=== PATIENT | female | born 1980 | race Caucasian/White ===

== ENCOUNTER 2020-03-04 07:48 | Outpatient (CLI) | payer BC, SELFPAY ==
--- NOTE | 2020-03-04 07:54 | US_ITS ---
WS: [id number] Complete ABDOMINAL ULTRASOUND HISTORY: EPIGASTRIC PAIN COMPARISON: None available. Liver: 18.2 cm in length. Slightly enlarged liver with increased echogenicity and hepatic steatosis. No mass. No bile duct dilatation. Gallbladder: Prior cholecystectomy. Pancreas: Normal size and echogenicity. CBD: 0.6 cm. Right kidney: 9.9 cm x 5.0 cm x 4.7 cm. No mass, cortical thickening or hydronephrosis. Left kidney: 12.6 cm x 4.8 cm x 3.6 cm. No mass, cortical thickening or hydronephrosis. Spleen: Spleen is top normal size measuring 12 cm in length. No mass. Abdominal aorta and IVC are within normal limits. No ascites. US/US abdomen complete* [id number] IMPRESSION: 1. Prior cholecystectomy. 2. Mild hepatomegaly with hepatic steatosis. 3. Top normal size spleen.
== END 2020-03-04 07:49 | disposition home or self-care (01) ==
PROVIDERS: PCP Family Medicine; Visit Provider Family Medicine
DX: R10.13 Epigastric pain (principal); R16.0 Hepatomegaly, not elsewhere classified; K76.0 Fatty (change of) liver, not elsewhere classified
CPT/HCPCS: 76700

== ENCOUNTER → 2020-04-01 09:26 | Outpatient (BNVA) | payer BC, SELFPAY | PROVIDERS: PCP Family Medicine; Visit Provider Obstetrics & Gynecology | DX: N93.9 Abnormal uterine and vaginal bleeding, unspecified (principal); D25.9 Leiomyoma of uterus, unspecified | CPT/HCPCS: 81025 ==

== ENCOUNTER → 2020-10-19 08:57 | Outpatient (BNVA) | payer BC, SELFPAY | PROVIDERS: PCP Family Medicine; Visit Provider Obstetrics & Gynecology | DX: D25.9 Leiomyoma of uterus, unspecified (principal) | CPT/HCPCS: 76830 ==

== ENCOUNTER → 2021-02-09 14:15 | Outpatient (BNVA) | payer BC, SELFPAY | PROVIDERS: PCP Family Medicine; Visit Provider Podiatrist Foot & Ankle Surgery | DX: M25.572 Pain in left ankle and joints of left foot (principal) | CPT/HCPCS: 73630 ==

== ENCOUNTER → 2022-03-14 10:08 | Outpatient (BNVA) | payer OTHER, SELFPAY | PROVIDERS: PCP Family Medicine; Visit Provider Obstetrics & Gynecology | DX: N93.9 Abnormal uterine and vaginal bleeding, unspecified (principal) | CPT/HCPCS: 88305 ==

== ENCOUNTER 2022-05-24 09:22 | Observation (INO) | payer OTHER, SELFPAY ==
[2022-05-23 10:20] VITALS: BMI 34.7
[2022-05-24] VITALS (32 sets, daily range): BP systolic 94–155; BP diastolic 60–100; PULSE 87–111; RESP 10–24; TEMP 36.1–36.9; O2SAT 89–99
--- NOTE | 2022-05-24 | US_ITS ---
WS: [id number] TRANSVAGINAL PELVIC ULTRASOUND HISTORY: IN OR EVAL FOR BLEED COMPARISON: None available. Limited evaluation of the pelvis during surgery. Transvaginal imaging reveals a complex fluid collect ion the central pelvis consistent with blood surrounding the vaginal cuff. Complex collection in the deep pelvis measuring 5.8 x 2.4 x 5.0 cm which is probably blood. US/US transvaginal [id number] IMPRESSION: Limited intraoperative imaging of the pelvis. Complex fluid collections in the pelvis at the surgical site are most consistent with blood products.
[2022-05-24] MEDS: acetaminophen 1,000 MG/100 ML PIGGYBACK 400 MG IV (07:00)
[2022-05-24 07:01] LABS: Basophils # 0.1 10^3/uL (0.0-0.1); Basophils % 1.2 %; Eosinophils # 0.3 10^3/uL (0.0-0.8); Eosinophils % 4.7 %; Hematocrit 41.4 % (37.0-47.0); Hemoglobin 14.6 g/dL (11.5-15.3); Lymphocytes # 1.6 10^3/uL (0.8-4.8); Lymphocytes % 26.8 %; Mean Corpuscular HGB Conc 35.3 g/dL (30.0-36.0); Mean Corpuscular Hemoglobin 30.2 pg (28.0-34.0); Mean Corpuscular Volume 85.5 fl (81-99); Mean Platelet Volume 9.5 fL (7.4-10.4); Monocytes # 0.6 10^3/uL (0.2-0.9); Monocytes % 9.2 %; Neutrophils # 3.37 10^3/uL (1.8-7.7); Neutrophils % 56.3 %; Nucleated Red Blood Cells % 0 %; Platelet Count 226 10^3/cmm (130-400); Red Blood Count 4.84 10^6/uL (4.1-5.3); Red Cell Distribution Width 13.2 % (12.1-15.1)
[2022-05-24] MEDS: gabapentin 300 mg Capsule PO (07:01)
[2022-05-24] MEDS: CELEcoxib 200 mg Capsule 400 MG PO (07:01)
[2022-05-24] MEDS: phenazopyridine 100 mg Tablet 200 MG PO ×3 (07:02→21:10)
[2022-05-24] MEDS: sodium chloride 0.9% 1,000 ML 30 ML IV (07:02)
--- NOTE | 2022-05-24 07:03 | W.PM.OPSUD ---
Surgery/Procedure H&P Update DATE OF PROCEDURE: May 24, 2022 DATE H&P PERFORMED: 05/19/22 H&P UPDATE INFORMATION: I have reviewed H&P completed within last 30 days, I have examined patient prior to procedure and No changes to prior documentation PREOP DIAGNOSIS: AUB PLANNED PROCEDURE: Operation Date: 05/24/22 07:00 Proposed Procedures p Laparoscopic assisted vaginal hysterectomy, bilateral salpingectomy 89674,N93.9(Not Applicable) - Maday Motley MD s Laparoscopic Salpingectomy(Bilateral) - Maday Motley MD Related Problem List Diagnoses (1) Fibroid uterus: (2) Abnormal uterine bleeding (AUB):
[2022-05-24] MEDS: ceFAZolin 2,000 MG in sodium chloride 0.9% (plus) 50 ML 100 MG IV ×2 (07:04→16:41)
[2022-05-24 07:11] LABS: OR HCG Qualitative Urine Negative (Negative)
[2022-05-24 07:18] LABS: Anion Gap 16.3 (5-19); Blood Urea Nitrogen 12 mg/dL (6-20); Carbon Dioxide 24 mmol/L (22-29); Chloride 102 mmol/L (98-107); Glomerular Filtration Rate 69.7 mL/min (90-130); Glucose 98 mg/dL (65-115); Osmolality Calculated 286 mOsm/kg (285-295); Potassium 4.3 mmol/L (3.5-5.1); Sodium 138 mmol/L (136-145)
--- NOTE | 2022-05-24 07:42 | SUR.OPER ---
attempted to contact family for surgical update
[2022-05-24] MEDS: vasopressin 20 unit/mL INJ 4 UNIT XX (08:06)
--- NOTE | 2022-05-24 08:06 | SUR.OPER ---
family updated of surgical status
--- NOTE | 2022-05-24 08:18 | ANES.PREANE2 ---
Pre-Anesthetic Assessment Height/Weight: Height 1.68 m Weight 97.522 kg Temp Pulse Resp BP Pulse Ox O2 Del Method 97.6 F 87 18 119/72 97 05/24/22 06:16 05/24/22 06:16 05/24/22 06:16 05/24/22 06:16 05/24/22 06:16 05/24/22 06:17 Preop Diagnosis: AUB Operation Date: 05/24/22 07:00 Proposed Procedures p Laparoscopic assisted vaginal hysterectomy, bilateral salpingectomy 48569,N93.9(Not Applicable) - Maday Motley MD s Laparoscopic Salpingectomy(Bilateral) - Maday Motley MD Familial anesthetic complications: PONV Was Beta Howie taken within 24 hours: N/A Was Clonidine taken within 24 hours: N/A Last intake: Intake Last Liquid Date 05/23/22 Last Liquid Time 22:00 Last Solid Date 05/23/22 Last Solid Time 20:00 Social No alcohol and No tobacco Exam alert, oriented x 3, clear to auscultation bilaterally and regular rate & rhythm Airway Submandibular: within normal limits Cervical ROM: within normal limits Mallampati: Class II Dentition: full Metabolic Morbid Obesity Neuropsych Anxiety and Depression Anesthetic Plan ASA status: 2 Anesthesia: General Medications/Allergies Home Medications Medication Instructions Recorded Confirmed Last Taken Type diphenoxylate-atropine 2.5 1 tab PO TID PRN loose stools #30 04/21/22 05/24/22 05/21/22 Rx mg-0.025 mg tablet (Lomotil) tabs sertraline 100 mg tablet 100 mg PO DAILY #30 tabs 05/05/22 05/24/22 05/24/22 Rx clonazepam 2 mg tablet 0.5 mg PO TID 05/19/22 05/24/22 05/24/22 History lamotrigine 25 mg tablet (Lamictal) 25 mg PO BID 05/19/22 05/24/22 05/24/22 History trazodone 100 mg tablet 100 mg PO DAILY 05/19/22 05/24/22 05/22/22 History Allergies Allergy/AdvReac Type Severity Reaction Status Date / Time aripiprazole [From Abilify] Allergy Intermediate changes in Verified 05/23/22 10:12 mood metoclopramide [From Reglan] AdvReac muscle Verified 05/23/22 10:12 spasms Current Medications Generic Name Dose Route Start Last Admin Trade Name Macrina PRN Reason Stop Dose Admin Sodium Chloride 1,000 mls @ 30 mls/hr 05/24/22 06:15 05/24/22 07:02 Sodium Chloride 0.9% IV 05/25/22 06:14 30 mls/hr .Q24H CHELO Administration PFSH Anesthesia Medical History Depression Diagnosed in 2015 and well-controlled with medication managed by PMD. Hypercholesteremia No pertinent past medical history Denies diabetes, asthma, hypertension, seizures, DVT/PE PMD: Dr. Rodriguez Surgical History History of shoulder surgery (~1999) Right side open surgery Hx of cholecystectomy (~2003) 2003---laparoscopic procedure Family History Mother Hypertension Hyperlipidemia Thyroid condition Grandfather Diabetes paternal Heart disease maternal Grandmother Breast cancer Paternal grandmother, age at diagnosis unknown Family/Other Breast cancer cousin, age at diagnosis unknown Denies family history of Colon cancer Ovarian cancer Uterine cancer Stroke Social History Alcohol intake: never Additional social history: - Data Anesthesia : 05/24/22 06:32 05/24/22 06:32 Short CBC 05/24/22 Range/Units 06:32 WBC 6.0 (4.0-10.0) 10^3/uL Hgb 14.6 (11.5-15.3) g/dL Hct 41.4 (37.0-47.0) % MCV 85.5 (81-99) fl Plt Count 226 (130-400) 10^3/cmm Neut % (Auto) 56.3 % Neut # (Auto) 3.37 (1.8-7.7) 10^3/uL BMP 05/24/22 06:32 Sodium 138 Potassium 4.3 Chloride 102 Carbon Dioxide 24 BUN 12 Creatinine 0.9 Glucose 98 Calcium 10.0 Blood Bank 05/24/22 06:32 Blood Type O Positive Rho(D) Type Positive Antibody Screen Negative Cardiac Studies: No Data to Display
--- NOTE | 2022-05-24 08:58 | SUR.OPER ---
family updated of surgical status
--- NOTE | 2022-05-24 09:13 | P.OP_ITS ---
Operative Report Date of procedure: May 24, 2022 Pre-op diagnosis: Preop Diagnosis AUB Post-op diagnosis: same Post-op findings: 10 week sized uterus. Normal appearing tubes and ovaries Procedure done: LAVH, bilateral salpingectomy Specimens removed/disposition: uterus and bilateral fallopian tubes to pathology Surgeon: Maday Motley Anesthesia: General Estimated blood loss (mL): 200 IV fluids (mL): 1,100 Urine output (mL): 250 Complications: none Condition: stable Disposition: PACU Procedure: The patient was taken to the operating room where general anesthesia was administered and found to be adequate. She was prepped and draped in the normal sterile fashion in the dorsal lithotomy position in [facility]. A Michele catheter was placed. A weighted speculum was placed into the vagina and the anterior lip of the cervix was grasped with a single tooth tenaculum. The Zumi uterine manipulator was placed. The weighted speculum was removed. The gloves were changed and attention was turned to the abdomen. A 5 mm supraumbilical incision was made. Using a 5 mm port with the camera, the port was placed into the abdomen. The abdomen was insufflated. Two low, lateral 5 mm ports were placed on the left and right under direct visualization from the camera. The right tube was grasped and elevated. Using the laparoscopic cautery, the mesosalpinx was divided between the ovary and tube. The tube was removed. This was performed the same way on the left. The uteroovarian ligaments as well as the round ligaments were ligated. Attention was then turned to the vaginal portion of the procedure. The weighted speculum was placed into the vagina. The zumi manipulator was re moved. The single tooth tenaculum was removed and replaced with the cally's tenaculum. 10 mL of dilute Pitressin was injected at the vesicovaginal junction. A circumferential incision was made at the vesicovaginal junction and the vaginal mucosa reflected cephalad. The posterior peritoneum was entered sharply with the Metzenbaum scissors and the long weighted speculum replaced. Using the Hattie clamps the uterosacral ligaments were clamped cut and suture- ligated. The anterior peritoneum was entered sharply with the metzenbaum scissors. Then sequentially the uterine arteries and cardinal ligaments were clamped cut and suture-ligated. A single-tooth tenaculum was used to deliver the uterus. The remaining segement of the utero-ovarian ligaments were clamped cut and suture-ligated bilaterally and the specimen was removed. There was good hemostasis with only mild bleeding from the cuff. The peritoneum was closed with a pursestring using 2-0 Vicryl. The vaginal cuff was closed with 0 Vicryl in a running locked pattern incorporating the uterosacral ligaments into the lateral aspects of the vaginal cuff. The Michele catheter was removed and the cystoscope advanced into the bladder. The patient was given pyridium and bilateral spill was noted. There were no injuries or deficits noted in the bladder. The cystoscope was removed and the Michele was replaced. Vaginal packing was placed for good hemostasis. The gloves and gowns were changed and attention was turned to the abdomen. The ports were closed with 2-0 monocryl with skin glue. The patient tolerated the procedure well. Sponge lap and needle counts were correct x3. She was taken to the recovery room in stable condition.
[2022-05-24] MEDS: fentaNYL 50 mcg/mL INJ 2mL IVP ×2 (10:10→14:00)
--- NOTE | 2022-05-24 10:57 | PC.NURSE ---
patient taken back to OR after observing blood in the vaginal area that had soaked through packing and pads. Dr Motley alerted and pt taken to OR 6.
[2022-05-24 11:00] LABS: Basophils # 0.1 10^3/uL (0.0-0.1); Basophils % 0.6 %; Eosinophils # 0.2 10^3/uL (0.0-0.8); Hematocrit 41.8 % (37.0-47.0); Hemoglobin 14.6 g/dL (11.5-15.3); Lymphocytes # 2.2 10^3/uL (0.8-4.8); Mean Corpuscular HGB Conc 34.9 g/dL (30.0-36.0); Mean Corpuscular Hemoglobin 30.4 pg (28.0-34.0); Mean Corpuscular Volume 87.1 fl (81-99); Mean Platelet Volume 9.4 fL (7.4-10.4); Monocytes # 0.4 10^3/uL (0.2-0.9); Monocytes % 1.9 %; Neutrophils # 16.26 10^3/uL (1.8-7.7); Neutrophils % 83.1 %; Nucleated Red Blood Cells % 0 %; Platelet Count 319 10^3/cmm (130-400); Red Cell Distribution Width 13.2 % (12.1-15.1); White Blood Count 19.6 10^3/uL (4.0-10.0)
--- NOTE | 2022-05-24 11:10 | PC.NURSE ---
1045 Was called to pacu to check patient who had a large pool of bright red blood on gurney, packing mcc in. Notified Dr Barreto to come to pacu stat and was decided to take patient to OR stat to do a vag exam to determine source of bleeding.
--- NOTE | 2022-05-24 12:15 | PM.OP ---
Operative Report Date of procedure: May 24, 2022 Pre-op diagnosis: Preop Diagnosis postoperative vaginal bleeding Preop Diagnosis AUB Post-op diagnosis: same Post-op findings: bilateral small arteriole bleeding. Clamped and tied. Excellent hemostasis post repair. Procedure done: opening of vaginal cuff and tying of bleeding vessels. Specimens removed/disposition: none Surgeon: Maday Motley Anesthesia: MAC Estimated blood loss (mL): 400 IV fluids (mL): 700 Urine output (mL): 450 Complications: none with this surgery Condition: stable Disposition: PACU Brief History: The patient went to PACU post surgery and was doing well. A final pad check prior to being taken to the floor showed a large amount of vaginal bleeding. The packing was removed and there appeared to be active bleeding. She was returned to the OR. Procedure: The patient was taken to the operating room she was prepped and draped in the normal sterile fashion in the dorsal lithotomy position in Gregory stirrups. A weighted speculum was placed into the vagina and the cuff visualized. Suction was used to remove all of the clots and blood from the vagina. There appeared to be some fresh bleeding from the right cuff area and then the bleeding would stop. Ultrasound was utilized and the patient was found to have a 5 x 5 cm fluid collection in her cul-de-sac. The cuff was opened. There were 2 small arterioles bleeding. 1 on each side. They were clamped and sutured. There was excellent hemostasis. The cuff was reapproximated with 0 Vicryl in a running locked fashion. There was excellent hemostasis post repair. Sponge lap and needle counts were correct x3. She was taken to the recovery room in stable condition.
--- NOTE | 2022-05-24 12:39 | P.ANESUD_ITS ---
Pre-Anesthetic Update Pre-Anesthetic Assessment: Date of Surgery/Procedure: 05/24/22 Preop Charity gnosis: AUB Proposed Procedure: Operation Date: 05/24/22 07:00 Proposed Procedures p Laparoscopic assisted vaginal hysterectomy, bilateral salpingectomy 36804,N93.9(Not Applicable) - Maday Motley MD s Laparoscopic Salpingectomy(Bilateral) - Maday Motley MD Operation Date: 05/24/22 13:40 Proposed Procedures p Exam Under Anesthesia(Not Applicable) - Maday Motley MD Any changes to Pre-Anesthetic Assessment?: Yes Changes from Pre-Anesthetic Assessment: Patient recovering in PACU, large blood loss, taken emergently to OR for reexplore. Last Intake: Intake Last Liquid Date 05/23/22 Last Liquid Time 22:00 Last Solid Date 05/23/22 Last Solid Time 20:00 Labs Last 48hrs: Short CBC 05/24/22 05/24/22 Range/Units 06:32 10:45 WBC 6.0 19.6 H (4.0-10.0) 10^3/ uL Hgb 14.6 14.6 (11.5-15.3) g/dL Hct 41.4 41.8 (37.0-47.0) % MCV 85.5 87.1 (81-99) fl Plt Count 226 319 D (130-400) 10^3/c mm Neut % (Auto) 56.3 83.1 % Neut # (Auto) 3.37 16.26 H (1.8-7.7) 10^3/u L BMP 05/24/22 06:32 Sodium 138 Potassium 4.3 Chloride 102 Carbon Dioxide 24 BUN 12 Creatinine 0.9 Glucose 98 Calcium 10.0 Blood Bank 05/24/22 06:32 Blood Type O Positive Rho(D) Type Positive Antibody Screen Negative Vitals: Temperature 97.0 F L 05/24/22 12:18 Temperature Source Temporal Artery S can 05/24/22 12:18 Pulse Rate 102 H 05/24/22 12:35 Respiratory Rate 15 05/24/22 12:35 Respiratory Effort 05/24/22 10:10 Respiratory Depth Normal 05/24/22 10:10 Blood Pressure 125/81 05/24/22 12:35 Blood Pressure Teri n 95 05/24/22 12:35 Pulse Oximetry 97 05/24/22 12:35 Oxygen Delivery Me thod 05/24/22 12:35 Oxygen Flow Rate 6 05/24/22 12:35 Cardiac Studies: No Data to Display
[2022-05-24 12:55] LABS: Basophils # 0.1 10^3/uL (0.0-0.1); Basophils % 0.4 %; Eosinophils # 0.1 10^3/uL (0.0-0.8); Eosinophils % 0.3 %; Hematocrit 42.2 % (37.0-47.0); Hemoglobin 14.1 g/dL (11.5-15.3); Lymphocytes # 1.7 10^3/uL (0.8-4.8); Mean Corpuscular HGB Conc 33.4 g/dL (30.0-36.0); Mean Corpuscular Hemoglobin 30.1 pg (28.0-34.0); Mean Platelet Volume 9.2 fL (7.4-10.4); Monocytes # 0.7 10^3/uL (0.2-0.9); Neutrophils # 21.05 10^3/uL (1.8-7.7); Neutrophils % 87.1 %; Nucleated Red Blood Cells % 0 %; Platelet Count 313 10^3/cmm (130-400); Red Blood Count 4.69 10^6/uL (4.1-5.3); Red Cell Distribution Width 13.4 % (12.1-15.1); White Blood Count 24.2 10^3/uL (4.0-10.0)
[2022-05-24] MEDS: ketorolac 30 mg/mL INJ IVP ×2 (15:00→21:10)
[2022-05-24] MEDS: dextrose 5%-lactated ringers 1,000 ML 125 ML IV ×2 (15:39→23:17)
[2022-05-24] MEDS: ondansetron 2 mg/ML SDV 2 mL 4 MG IVP ×2 (16:48→21:12)
--- NOTE | 2022-05-24 17:08 | ANE.PACU2 ---
Inpatient post-anesthesia follow up: Airway intact: Yes Vital signs: Temperature 97.0 F Pulse Rate 106 Respiratory Rate 15 Blood Pressure 125/77 Pulse Oximetry 92 Oxygen Delivery Me thod Room Air Oxygen Flow Rate 6 Fraction of Inspir ed Oxygen Hydration adequate: Yes Nausea and vomiting: No Pain level: 5 Mental status: Baseline
[2022-05-24] MEDS: lamoTRIgine 25 mg Tablet PO (19:25)
[2022-05-24] MEDS: HYDROcodone-acetaminophen 5-325 mg Tablet PO (19:25)
[2022-05-24] MEDS: docusate sodium 100 mg Capsule PO (19:25)
[2022-05-25] MEDS: ceFAZolin 2,000 MG in sodium chloride 0.9% (plus) 50 ML 100 MG IV (01:12)
[2022-05-25 01:30] VITALS: BP 119/77; PULSE 105; O2SAT 91
[2022-05-25] MEDS: ketorolac 30 mg/mL INJ IVP ×2 (03:00→09:39)
[2022-05-25 05:30] VITALS: BP 118/70; PULSE 93; TEMP 36.8; O2SAT 95
[2022-05-25 05:58] LABS: Hematocrit 28.7 % (37.0-47.0); Hemoglobin 9.9 g/dL (11.5-15.3); Mean Corpuscular HGB Conc 34.5 g/dL (30.0-36.0); Mean Corpuscular Hemoglobin 30.2 pg (28.0-34.0); Mean Corpuscular Volume 87.5 fl (81-99); Mean Platelet Volume 9.5 fL (7.4-10.4); Platelet Count 203 10^3/cmm (130-400); Red Blood Count 3.28 10^6/uL (4.1-5.3); Red Cell Distribution Width 13.2 % (12.1-15.1); White Blood Count 7.2 10^3/uL (4.0-10.0)
[2022-05-25] MEDS: HYDROcodone-acetaminophen 5-325 mg Tablet PO (07:08)
--- NOTE | 2022-05-25 09:14 | PM.DCS ---
Discharge Providers Date of Admission: 05/24/22 09:22 Date of Discharge: May 25, 2022 Attending Provider at Admission: Maday Motley MD Attending Provider at Discharge: Maday Motley MD Primary Care Provider: Jamaal Rodriguez DO Diagnoses at Discharge Discharge Diagnosis (1) Fibroid uterus: Status: Acute (2) Abnormal uterine bleeding (AUB): Status: Acute Reason for Visit Reason for Visit: ABNORMAL UTERINE AND VAGINAL BLEEDING, UNSPECIFIED Hospital Course Hospital Course The patient was admitted for surgery. She started having vaginal bleeding about an hour postoperatively. She was returned to surgery, her cuff opened and the bleeder clamped and tied. She had an uneventful postop course after that. She did have a significant drop in her hemoglobin from 14.6 to 9.9. Her initial hemoglobin may be falsely elevated due to NPO status. She also received fluids, which may also have a dilutional effect. She is feeling well and ready for discharge. Physical Exam Narrative: The patient has no concerns today. She is feeling well and ready for discharge. Const: COMMON NORMALS: no acute distress, patient oriented x3, no limitations, healthy appearing, alert and well nourished GENERAL APPEARANCE: cooperative, comfortable, well kempt and well developed ORIENTATION/CONSCIOUSNESS: Yes awake, Yes oriented to person, Yes oriented to place and Yes oriented to time Resp: COMMON NORMALS: normal respiratory effort EFFORT & INSPECTION: Yes able to speak in complete sentences GI: COMMON NORMALS: Soft to palpation and non-tender PALPATION: Yes Soft to palpation Extremity: COMMON NORMALS: no calf tenderness Neuro: COMMON NORMALS: patient oriented x3 SENSORIUM/ORIENTATION: Yes alert, Yes oriented to person, Yes oriented to place and Yes oriented to time Psych: APPEARANCE: Yes well kempt Urinary Catheter Management: Michele Latex: Cath Placed During This Visit: yes, but has since been removed by the nurse Reason for Continuing Indwelling Catheter: Decision to DC Catheter Urinary Catheter Date of Insertion: 05/24/22 Urinary Catheter Time of Insertion: 07:39 Date Urinary Catheter Removed: 05/25/22 Time Urinary Catheter Discontinued: 05:00 Discharge Data Studies Completed and Pending Completed Studies During Hospitalization Category Date Time Status US transvaginal [id number] Routine Ultrasound 05/24/22 Completed Pending at discharge Category Date Time Status ES surgery / GI images Routine Exams 05/24/22 06:44 Taken Urine Culture Routine Lab 05/24/22 06:30 Received Pathology: Surgical [PTH] Routine Pth 05/24/22 09:07 Received Radiology Impressions Transvaginal US 05/24/22 00:00 IMPRESSION: Limited intraoperative imaging of the pelvis. Complex fluid collections in the pelvis at the surgical site are most consistent with blood products. Laboratory Results WBC 7.2 10^3/uL (4.0-10.0) 05/25/22 05:47 Corrected WBC Cancelled 05/24/22 12:45 RBC 3.28 10^6/uL (4.1-5.3) L 05/25/22 05:47 Hgb 9.9 g/dL (11.5-15.3) L 05/25/22 05:47 Hct 28.7 % (37.0-47.0) L D 05/25/22 05:47 MCV 87.5 fl (81-99) 05/25/22 05:47 MCH 30.2 pg (28.0-34.0) 05/25/22 05:47 MCHC 34.5 g/dL (30.0-36.0) 05/25/22 05:47 RDW 13.2 % (12.1-15.1) 05/25/22 05:47 Plt Count 203 10^3/cmm (130-400) D 05/25/22 05:47 MPV 9.5 fL (7.4-10.4) 05/25/22 05:47 Gran % Cancelled 05/24/22 12:45 Neut % (Auto) 87.1 % 05/24/22 12:45 Neut % (Auto) Cancelled 05/24/22 12:45 Lymph % (Auto) 7.0 % 05/24/22 12:45 Lymph % (Auto) Cancelled 05/24/22 12:45 Prentiss % (Auto) 3.0 % 05/24/22 12:45 Prentiss % (Auto) Cancelled 05/24/22 12:45 Eos % (Auto) 0.3 % 05/24/22 12:45 Eos % (Auto) Cancelled 05/24/22 12:45 Baso % (Auto) 0.4 % 05/24/22 12:45 Baso % (Auto) Cancelled 05/24/22 12:45 Neut # (Auto) 21.05 10^3/uL (1.8-7.7) H 05/24/22 12:45 Neut # (Auto) Cancelled 05/24/22 12:45 Lymph # (Auto) 1.7 10^3/uL (0.8-4.8) 05/24/22 12:45 Lymph # (Auto) Cancelled 05/24/22 12:45 Prentiss # (Auto) 0.7 10^3/uL (0.2-0.9) 05/24/22 12:45 Prentiss # (Auto) Cancelled 05/24/22 12:45 Eos # (Auto) 0.1 10^3/uL (0.0-0.8) 05/24/22 12:45 Eos # (Auto) Cancelled 05/24/22 12:45 Baso # (Auto) 0.1 10^3/uL (0.0-0.1) 05/24/22 12:45 Baso # (Auto) Cancelled 05/24/22 12:45 Absolute Gran (auto) Cancelled 05/24/22 12:45 Nucleated RBC % (auto) 0 % 05/24/22 12:45 Nucleated RBC % (auto) Cancelled 05/24/22 12:45 Nucleated RBCs # 0.0 /100WBC 05/24/22 12:45 Nucleated RBCs # Cancelled 05/24/22 12:45 Sodium 138 mmol/L (136-145) 05/24/22 06:32 Potassium 4.3 mmol/L (3.5-5.1) 05/24/22 06:32 Chloride 102 mmol/L (98-107) 05/24/22 06:32 Carbon Dioxide 24 mmol/L (22-29) 05/24/22 06:32 Anion Gap 16.3 (5-19) 05/24/22 06:32 BUN 12 mg/dL (6-20) 05/24/22 06:32 Creatinine 0.9 mg/dL (0.5-0.9) 05/24/22 06:32 GFR Calculation 69.7 mL/min (90-130) L 05/24/22 06:32 Glucose 98 mg/dL (65-115) 05/24/22 06:32 Calculated Osmolality 286 mOsm/kg (285-295) 05/24/22 06:32 Calcium 10.0 mg/dL (8.5-10.5) 05/24/22 06:32 Urine HCG, Qual Negative (Negative) 05/24/22 06:30 Blood Type O Positive 05/24/22 06:32 Rho(D) Type Positive 05/24/22 06:32 Antibody Screen Negative 05/24/22 06:32 Vitals Last Vital Signs Temp 98.3 F 05/25/22 05:30 Pulse 93 05/25/22 05:30 Resp 15 05/24/22 19:30 BP 118/70 05/25/22 05:30 Pulse Ox 95 05/25/22 05:30 O2 Del Method 05/25/22 05:30 O2 Flow Rate 2 05/24/22 15:00 Discharge Plan Discharge Patient Disposition: Home Condition: Stable Prescriptions: New ibuprofen 800 mg Tablet 800 mg PO Q8H Qty: 30 0RF hydrocodone-acetaminophen 5-325 mg Tablet 1 tab PO Q4H PRN (Reason: Moderate To Severe Pain) Qty: 30 0RF Continued sertraline 100 mg tablet 100 mg PO DAILY Qty: 30 1RF lamotrigine [Lamictal] 25 mg tablet 25 mg PO BID clonazepam 2 mg tablet 0.5 mg PO TID trazodone 100 mg tablet 100 mg PO DAILY diphenoxylate-atropine [Lomotil] 2.5-0.025 mg tablet 1 tab PO TID PRN (Reason: loose stools) Qty: 30 0RF Discharge Orders: Discharge Order (Routine); Ordered 05/25/22 Ordered By: Maday Motley Referrals: Maday Motley MD [Physician] - 05/30/22 9:30 am ( Your 1 week follow up with Dr Motley will be on MondayMay 30 at 9:30am Your 6 week follow up with Dr Motley will be on MondayJul 04 at 1:15pm ) Patient Instructions: Cystoscopy, Laparoscopic Hysterectomy (GEN), OB Abdominal Surgery - [facility], OB Discharge Report, OB Laproscopic Surgery - [facility], OB Food/Drug Interaction Guide, Opioid Safety Discharge Attestations Time Spent in Discharge Care*: less than 30 min Quality Metrics Clinical Quality Measures [ No reported AMI, CVA or VTE this stay] Coding Level of Care Code Acute Chg FW DC note Diagnoses Fibroid uterus D25.9 Abnormal uterine bleeding (AUB) N93.9
[2022-05-25] MEDS: phenazopyridine 100 mg Tablet 200 MG PO (09:37)
[2022-05-25] MEDS: lamoTRIgine 25 mg Tablet PO (09:39)
[2022-05-25] MEDS: sertraline 100 mg Tablet PO (09:39)
[2022-05-25 10:11] VITALS: BP 125/67; PULSE 94; RESP 15; TEMP 36.8
== END 2022-05-25 10:00 | disposition home or self-care (01) ==
LOC: OBGYN 09:24
PROVIDERS: Admitting Provider Obstetrics & Gynecology; PCP Family Medicine; Visit Provider Obstetrics & Gynecology
PROC: 0UT9FZZ Resection of Uterus, Via Natural or Artificial Opening With Percutaneous Endoscopic Assistance (ICD-10-PCS; CPT 35840; principal; 2022-05-24 07:00)
PROC: (CPT 58661; 2022-05-24 07:00)
PROC: 0TJB8ZZ Inspection of Bladder, Via Natural or Artificial Opening Endoscopic (ICD-10-PCS; CPT 52000; 2022-05-24 07:00)
PROC: (CPT 35840; principal; 2022-05-24 13:30)
DX: N93.9 Abnormal uterine and vaginal bleeding, unspecified (principal); D25.9 Leiomyoma of uterus, unspecified; N99.821 Postprocedural hemorrhage of a genitourinary system organ or structure following other procedure
CPT/HCPCS: 35840; 58552; 36415; 76830; 80048; 81025; 84703; 85025; 85027; 86850; 86900; 87086; 88307; 96374; 96376; G0378; J0131; J0330; J0690; J1100; J1170; J1200; J1885; J2250; J2405; J2704; J2710; J3010; J3490; J3535; J7030; J7121

== ENCOUNTER → 2024-01-12 09:14 | Outpatient (BNVA) | payer OTHER, SELFPAY | PROVIDERS: PCP Family Medicine; Visit Provider Family Medicine | DX: Z00.00 Encounter for general adult medical examination without abnormal findings (principal); E78.00 Pure hypercholesterolemia, unspecified; F32.9 Major depressive disorder, single episode, unspecified; F41.9 Anxiety disorder, unspecified; Z13.6 Encounter for screening for cardiovascular disorders | CPT/HCPCS: 80053; 80061; 85025 ==

== ENCOUNTER → 2025-06-24 09:54 | Outpatient (BNVA) | payer BC, SELFPAY | PROVIDERS: PCP Family Medicine; Visit Provider Family Medicine | DX: Z00.00 Encounter for general adult medical examination without abnormal findings (principal) | CPT/HCPCS: 80053; 80061 ==

== ENCOUNTER 2025-07-02 13:42 | Outpatient (CLI) | payer BC, SELFPAY ==
--- NOTE | 2025-07-02 14:00 | MM_ITS ---
WS: [id number] BILATERAL 3D TOMOSYNTHESIS DIGITAL SCREENING MAMMOGRAPHY WITH CAD CLINICAL INFORMATION: Z12.39 - Encounter for other screening for malignant neop... HISTORY: Screening mammogram. No current complaints. COMPARISON: Baseline TECHNIQUE: Bilateral CC and MLO views. FINDINGS: The breasts are composed of heterogeneous fibroglandular density tissue, which can limit the detection of small underlying mass lesions. No suspicious mass, asymmetry, calcifications, or architectural distortion. No evidence of malignancy. MM/MM [facility] tomosynthesis [id number] IMPRESSION: DENSITY: The breasts are heterogeneously dense, which may obscure small masses. BI-RADS: 1 - Negative FOLLOW UP: 1 Year Follow-up Recommend return to annual screening mammography.
== END 2025-07-02 13:43 | disposition home or self-care (01) ==
LOC: RAD 13:43
PROVIDERS: PCP Family Medicine; Visit Provider Family Medicine
DX: Z12.31 Encounter for screening mammogram for malignant neoplasm of breast (principal); R92.333 Mammographic heterogeneous density, bilateral breasts; R92.323 Mammographic fibroglandular density, bilateral breasts
CPT/HCPCS: 77063; 77067